=== PATIENT | female | born 1960 | race Caucasian/White ===

== ENCOUNTER → 2018-07-19 | Outpatient (CLI) | payer OTHER | END | disposition home or self-care (01) | LOC: CFH 16:33 | PROVIDERS: ATTEND Nurse Practitioner Family | DX: N95.0 Postmenopausal bleeding (principal) | CPT/HCPCS: 76830 ==

== ENCOUNTER 2018-11-12 06:56 | Day surgery (SDC) | payer OTHER ==
[~2018-11-12] VITALS: Ht 163.8 cm; Wt 63.0 kg
[~2018-11-12 06:56] MED LIST: BUPIVACAINE/PF 0.25% ONE; INDOCYANINE GREEN 25 MG VIAL ONE; NONE PER PT
[2018-11-12] MEDS ORDERED: LACTATED RINGERS 1,000 ML IV SCH (07:25)
[2018-11-12 08:00] VITALS: BP 109/74
[2018-11-12] MEDS ORDERED: SCOPOLAMINE PATCH, 1.5MG PATCH.TD72 TD ONE (08:30)
[2018-11-12] MEDS ORDERED: GABAPENTIN 300 MG CAPSULE PO ONE (08:30)
[2018-11-12] MEDS ORDERED: MIDAZOLAM 1 MG/ML, 2ML ONE (09:35)
[2018-11-12] MEDS ORDERED: FENTANYL PF 250 MCG/5ML ONE (09:36)
[2018-11-12] MEDS ORDERED: ROCURONIUM 10MG/ML,5ML ONE (09:37)
[2018-11-12] MEDS ORDERED: PROPOFOL 10 MG/ML, 20ML ONE (09:38)
[2018-11-12] MEDS ORDERED: LIDOCAINE-MPF 2% ,5ML ONE (09:38)
[2018-11-12] MEDS ORDERED: DEXAMETHASONE 4 MG/ML, 1ML ONE ×2 (09:39)
[2018-11-12] MEDS ORDERED: CEFOTETAN PMX 2GM/50ML 50 ML ONE (09:39)
[2018-11-12] MEDS ORDERED: ONDANSETRON 2MG/ML, 2ML ONE ×2 (09:39)
[2018-11-12] MEDS ORDERED: PROPOFOL 50 ML ONE (12:36)
[2018-11-12] MEDS ORDERED: HALOPERIDOL 5 MG/ML IV PRN (13:00)
[2018-11-12] MEDS ORDERED: LORazepam 2 MG/ML, 1ML IVPush PRN (13:00)
[2018-11-12] MEDS ORDERED: HYDROmorphone 2 MG/ML, 1ML IVPush PRN (13:00)
[2018-11-12] MEDS ORDERED: hydrALAzine 20 MG/ML, 1ML IV PRN (13:00)
[2018-11-12] MEDS ORDERED: MEPERIDINE/PF 25MG/0.5ML IVPush PRN (13:00)
[2018-11-12] MEDS ORDERED: OXYcodone 5 MG/5 ML ORAL.SOL UDC PO PRN (13:00)
[2018-11-12] MEDS ORDERED: ALBUTEROL SULFATE 2.5 MG/3 ML NPPB PRN (13:00)
[2018-11-12] MEDS ORDERED: PROMETHAZINE 25 MG/ML, 1ML IV PRN (13:00)
[2018-11-12] MEDS ORDERED: FENTANYL PF 100 MCG/2ML ONE (14:47)
[2018-11-12] MEDS ORDERED: OXYcodone 5 MG/5 ML ORAL.SOL UDC ONE (14:47)
[2018-11-12] MEDS: FENTANYL PF 100 MCG/2ML IV PRN ×2 (14:55→15:23)
[2018-11-12] MEDS ORDERED: MEPERIDINE/PF 25MG/0.5ML ONE (14:56)
== END 2018-11-12 17:50 | disposition home or self-care (01) ==
LOC: OUT 06:56
PROVIDERS: ATTEND Specialist
DX: N84.0 Polyp of corpus uteri (principal); N94.89 Other specified conditions associated with female genital organs and menstrual cycle; R59.1 Generalized enlarged lymph nodes; Z88.6 Allergy status to analgesic agent; Z72.89 Other problems related to lifestyle; Z87.891 Personal history of nicotine dependence; Z98.890 Other specified postprocedural states
CPT/HCPCS: 36415; 38571; 58552; 74018; 86850; 86900; 88112; 88305; 88307; 88331; J1100; J2175; J2250; J2405; J2704; J3010; J3490; J7120

== ENCOUNTER 2019-01-26 07:36 | Emergency (ER) | payer OTHER ==
[~2019-01-26] VITALS: Ht 162.6 cm; Wt 63.0 kg
[~2019-01-26 07:36] MED LIST changes: -BUPIVACAINE/PF 0.25% ONE; -INDOCYANINE GREEN 25 MG VIAL ONE
[2019-01-26 07:39] VITALS: BP 160/85
--- NOTE | 2019-01-26 08:20 | NUR ---
[employer]: PT DISCHARGED FROM [facility] BY REQUEST OF MEDARDO RUSH.
[2019-01-26 08:32] LABS: AMPHETAMINE SCREEN, URINE Negative (Negative); BARBITURATE SCREEN, URINE Negative (Negative); BENZODIAZEPINE SCREEN, URINE Negative (Negative); CANNABINOID SCREEN, URINE Negative (Negative); COCAINE SCREEN, URINE Negative (Negative); METHADONE SCREEN, URINE Negative (Negative); OPIATE SCREEN, URINE Negative (Negative)
== END 2019-01-26 08:23 | disposition home or self-care (01) ==
LOC: ED 08:12
DX: Z00.00 Encounter for general adult medical examination without abnormal findings (principal); Z88.6 Allergy status to analgesic agent; Z88.8 Allergy status to other drugs, medicaments and biological substances
CPT/HCPCS: 80307; 99283